=== PATIENT | male | born 1970 | race Caucasian/White ===

== ENCOUNTER 2017-02-24 13:37 | Emergency (ER) | payer OTHER ==
[~2017-02-24] VITALS: Ht 182.9 cm; Wt 86.2 kg
[2017-02-24] MEDS ORDERED: DIAZEPAM2 MG PO (13:51)
== END 2017-02-24 14:34 | disposition home or self-care (01) ==
LOC: ED 13:37
DX: J40 Bronchitis, not specified as acute or chronic (principal); S64.01XA Injury of ulnar nerve at wrist and hand level of right arm, initial encounter; F17.200 Nicotine dependence, unspecified, uncomplicated; Z79.899 Other long term (current) drug therapy; X58.XXXA Exposure to other specified factors, initial encounter
CPT/HCPCS: 99282

== ENCOUNTER 2017-03-07 20:01 | Emergency (ER) | payer OTHER ==
[~2017-03-07] VITALS: Ht 182.9 cm; Wt 81.7 kg
[~2017-03-07 20:01] MED LIST: DIAZEPAM2 MG PO
[2017-03-07] MEDS ORDERED: CEPHALEXIN500 MG PO (22:32)
== END 2017-03-07 22:50 | disposition home or self-care (01) ==
LOC: ED 20:01
DX: L03.311 Cellulitis of abdominal wall (principal); F17.200 Nicotine dependence, unspecified, uncomplicated; Z79.899 Other long term (current) drug therapy
CPT/HCPCS: 73610; 99283